=== PATIENT | male | born 1935 | race Caucasian/White ===

== ENCOUNTER 2018-11-30 22:51 | Observation (INO) | payer OTHER, MEDICAID ==
[~2018-11-30] VITALS: Ht 165.1 cm; Wt 70.4 kg
[2018-11-30 23:07] VITALS: Ht 165.1 cm; Wt 70.4 kg
--- NOTE | 2018-11-30 23:10 | NUR ---
PT BIBA AFTER HAVING GENERALIZED WEAKNESS AND NEAR SYNCOPAL EPISODE WHILE AT THE [facility] AFTER FASTING FOR 16HOURS. PT AWAKE, ALERT, ORIENTED TO SELF, REORIENTED APPROPRIATE. PER PARAMEDICS, PT IS AOX 4 AND VERBAL AT BASELINE. WHEN PATIENT WAS RECEIVED, ALL HE VERBALIZED WAS THAT HE WAS COLD AND STATED HIS NAME ONLY. WHEN ASKED FOR THE LOCATION AND YEAR, PATIENT REPEATS HIS NAME. PATIENT COMPLAINING OF NECK PAIN, HOB ELEVATED. DR. MANN WAS IN TO SEE PATIENT AT THE TIME. WILL CONTINUE TO MONITOR. BLANKET AND COMFORT MEASURES IMPLEMENT. SAFETY PRECUATIONS IN PLACE
--- NOTE | 2018-11-30 23:33 | NUR ---
FAMILY AT BEDSIDE. UPDATED REGARDING PLAN OF CARE. PT RESTING WITH EYES CLOSED, RESPIRATIONS EVEN AND UNLABORED. WILL CONTINUE TO MONITOR. SAFETY PRECAUTIONS IN PLACE
--- NOTE | 2018-11-30 23:50 | NUR ---
PT TAKEN FOR CT SCAN BY OUTPATIENT DIETITIAN
[2018-11-30 23:51] LABS: BASOPHIL % 0.4 % (0-2); PLATELET COUNT 203 x10^3mcL (130-400); RED CELL DISTRIBUTION WIDTH 13.5 % (11.5-14.5)
--- NOTE | 2018-12-01 00:22 | NUR ---
MEDICATED PER EMAR. PT VERBAL AND AOX4 AT THIS TIME. REPORTING ABDOMINAL PAIN AND GAS. RESPIRATIONS EVEN AND UNLABORED. CONTINUES TO REPORT FEELING COLD. PROVIDED WITH MORE WARM BLANKETS. SAFETY PRECAUTIONS IN PLACE
[2018-12-01 00:27] LABS: CALCIUM 9.6 mg/dL (8.5-10.1); CHLORIDE SERUM 97 mmol/L (98-107); CREATININE SERUM 1.1 mg/dL (0.7-1.3); GLUCOSE SERUM 140 mg/dL (74-106); POTASSIUM SERUM 3.4 mmol/L (3.5-5.1); SODIUM SERUM 134 mmol/L (136-145)
[2018-12-01 00:31] LABS: ALBUMIN 3.8 g/dL (3.4-5.0); ALKALINE PHOSPHATASE 64 U/L (46-116); ALT/SGPT 24 U/L (16-63); AST/SGOT 22 U/L (15-37); BILIRUBIN TOTAL 0.4 mg/dL (0.20-1.00); TOTAL PROTEIN, SERUM 7.7 g/dL (6.4-8.2)
--- NOTE | 2018-12-01 01:18 | NUR ---
PT PROVIDED WITH URINAL AND INSTRUCTED TO PROVIDE URINE SAMPLE, PT VERBALIZES UNDERSTANDING.
[2018-12-01] MEDS ORDERED: ATENOLOL25 MG (01:54)
--- NOTE | 2018-12-01 01:59 | NUR ---
REPORT GIVEN TO CARLOTTA HARDING, ALL QUESTIONS AND CONCERNS WERE ADDRESSED
--- NOTE | 2018-12-01 02:30 | NUR ---
RECEIVED PT FROM ED. PT AOX4. MED SURG PT. DENIES CP/PRESSURE. LUNG SOUNDS DIMINISHED, ON 2L NC. DENIES SOB/DIFFICULTY BREATHING. GEN WEAKNESS. IV TO LAC, INTACT AND PATENT. DAUGHTER AT BEDSIDE. CALL LIGHT WITHIN REACH. BED IN LOWEST POSTIION. WILL CONTINUE TO MONITOR.
--- NOTE | 2018-12-01 02:50 | NUR ---
RECEIVED MED ORDERS FROM DR. MCCOY, TELEPHONE ORDERS READ BACK.
[2018-12-01 02:57] VITALS: BP 118/45
--- NOTE | 2018-12-01 03:38 | NUR ---
PT REQUESTED TO REMOVE O2. SATING AT 99% ON RA. WILL CONTINUE TO MONITOR.
--- NOTE | 2018-12-01 04:30 | NUR ---
PT RESTING IN BED. RR EVEN AND UNLABORED. NO ACUTE DISTRESS NOTED. CALL LIGHT WITHIN REACH. BED IN LOWEST POSITION. WILL CONTINUE TO MONITOR.
[2018-12-01 04:47] LABS: microscopic required? YES; urine erythrocyte TRACE (NEGATIVE)
--- NOTE | 2018-12-01 07:35 | NUR ---
RECEIVED PT IN NO ACUTE DISTRESS. SLEEPING BUT EASILY AROUSABLE. RESP EVEN AND UNLABORED ON RA. GEN WEAKNESS. IVF INFUSING, NO REDNESS OR SWELLING TO IV SITE. DAUGHTER AT BEDSIDE. BED IN LOW POSITION, CALL LIGHT WITHIN REACH. WILL CONTINUE TO MONITOR.
[2018-12-01 09:57] VITALS: BP 142/75
--- NOTE | 2018-12-01 12:38 | NUR ---
PT SITTING UP ON THE SIDE OF THE BED EATING LUNCH. NO ACUTE DISTRESS. IVF INFUSING, NO REDNESS OR SWELLING. VISITOR AT BEDSIDE. CALL LIGHT WITHIN REACH. WILL CONTINUE TO MONITOR.
--- NOTE | 2018-12-01 12:44 | NUR ---
DR. ARNOLD AT BEDSIDE TO EVALUATE PT.
[2018-12-01 12:52] VITALS: BP 142/75
--- NOTE | 2018-12-01 13:30 | NUR ---
PT DISCHARGED TO HOME IN NO ACUTE DISTRESS. AWAKE, ALERT, AND ORIENTED. VSS. TRANSPORTED VIA WHEELCHAIR. DISCHARGE EDUCATION PROVIDED, PT VERBALIZED UNDERSTANDING. INSTRUCTED PT TO FOLLOW UP WITH PCP. IV DC'D WITH CATHETER INTACT. BELONGINGS WITH PT. LATOSHA BENNETT ACCOMPANIED PT TO LOBBY.
== END 2018-12-01 13:34 | disposition home or self-care (01) | DRG 312 ==
LOC: ED 22:51 → MU 12-01 01:38 → EDBEDREQTM 12-01 01:48 → EDBEDREQ 12-01 01:48 → MU 12-01 02:22
PROVIDERS: Emergency Medicine; ADMIT Specialist
DX: R55 Syncope and collapse (principal); E87.2 Acidosis; E86.0 Dehydration; I10 Essential (primary) hypertension; Z68.25 Body mass index [BMI] 25.0-25.9, adult
CPT/HCPCS: 82962; G0378; J0696; J1885; J2405; J7030; J7120